=== PATIENT | male | born 1955 | race Caucasian/White ===

== ENCOUNTER → 2022-10-12 | Outpatient (CLI) | payer OTHER | LOC: M RAD 09:38 | PROVIDERS: ATTEND Internal Medicine | DX: I74.8 Embolism and thrombosis of other arteries (principal); I82.721 Chronic embolism and thrombosis of deep veins of right upper extremity ==

== ENCOUNTER → 2022-10-25 | Outpatient (CLI) | payer OTHER | LOC: M LAB 10:22 | PROVIDERS: ATTEND Physician Assistant | DX: R97.20 Elevated prostate specific antigen [PSA] (principal) ==